=== PATIENT | male | born 1935 | race Caucasian/White ===

== ENCOUNTER → 2016-07-25 | Outpatient (REF) ==
[~2016-07-25] MED LIST: ARICEPT10 MG PO; ASPIRIN 32325 MG/TAB PO; CARDIZEM120 MG PO; CARDURA 2MG2 MG PO; CARDURA2 MG PO; CIPRO 500MG TA500 MG PO; DIGOXIN0.125 MG PO; IRON FERROUS S325 MG PO; K-DUR 2020 MEQ PO; LANOXIN 0.120.125 MG PO; LORTAB 7.5/5001 TAB PO; MELATONIN3 MG; MELATONIN3 MG PO; NITRO-DUR0.2 MG/PAT TD; NITROGLYCER0.2 MG/H1 TD; OS-CAL 500500 MG PO; POTASSIUM CH2 MEQ/ML PO; PRILOSEC 20MG20 MG PO; REMERON30 MG PO; ROBITUSSIN100 MG/5 M PO; TYLENOL 325MG325 MG PO; TYLENOL EXTRA500 M1 PO; VITAMIN C500 MG PO
== END ==
LOC: ZLAB.WCH 10:44
DX: Z01.89 Encounter for other specified special examinations (principal)

== ENCOUNTER → 2016-07-31 | Outpatient (REF) | LOC: ZLAB.WCH 11:26 | DX: Z01.89 Encounter for other specified special examinations (principal) ==

== ENCOUNTER → 2016-09-02 | Outpatient (REF) | LOC: ZLAB.WCH 11:23 | DX: Z01.89 Encounter for other specified special examinations (principal) ==

== ENCOUNTER → 2017-02-16 | Outpatient (REF) | LOC: ZLAB.WCH 08:48 | DX: Z01.89 Encounter for other specified special examinations (principal) ==